=== PATIENT | female | born 1965 | race Caucasian/White ===

== ENCOUNTER 2016-10-11 10:59 | Emergency (ER) | payer OTHER ==
[2016-10-11 11:32] VITALS: BP 185/95; PULSE 93; RESP 16; TEMP 98.2; O2SAT 98
--- NOTE | 2016-10-11 11:59 | UCPHY ---
[id number] complaint. Foot injury HPI. 51-year-old female been back her toe today and heard crack or pop. It was swollen and discolored though now seems to be somewhat better. No previous injury to the foot. Denies focal weakness paresthesias. No other injuries ROS Constitutional. no fever/chills, no weakness Eyes. no problems with vision ENT. no sore throat, no nasal drainage Cardiovascular. no chest pain Respiratory. no shortness of breath, no cough Abdominal. no abdominal pain, no nausea/vomiting, no diarrhea . no problems urinating MS. Pain at the base of the right great toe Skin. no rash Lymph. no swollen glands Neuro. no headache, no dizziness, no difficulty walking or with speech Past Medical/Surgical History: Healthy Social History: , nonsmoker, no alcohol Smoking Status: Never smoked Physical Exam: General Appearance: Alert well-developed female mild distress vital signs stable Eyes: Pupils equal and round no pallor or injection. ENT, Mouth: Mucous membranes are moist. Respiratory: There are no retractions, lungs are clear to auscultation. Cardiovascular: Regular rate and rhythm. Gastrointestinal: Abdomen is soft and nontender, no masses, bowel sounds normal. Neurological: Awake and alert, sensory and motor exams grossly normal. Skin: Warm and dry, no rashes. Musculoskeletal: Neck is supple nontender. Extremities tenderness and some swelling to the base of the right great toe with some tenderness to the underside of the MTP joint Psychiatric: Patient is oriented X 3, there is no agitation. Constitutional: Initial Vital Signs Temperature (C) 36.8 C 10/11/16 11:26 Heart Rate 93 10/11/16 11:26 Respiratory Rate 16 10/11/16 11:26 Blood Pressure 185/95 H 10/11/16 11:26 O2 Sat (%) 98 10/11/16 11:26 O2 Delivery Mode Room Air Allergies/Adverse Reactions: No Known Allergies Allergy (Unverified 10/11/16 11:31) Home Medications: Medication Instructions Recorded NK [No Known Home Meds] 10/11/16 MDM/Departure - MDM Diagnostics: X-ray of the right foot evaluated by me and discussed with Dr. Tao shows possible fracture of the sesamoid bone under the great toe. ED Course/Re-evaluation: Patient remained stable. She and I discussed imaging study results, treatment plan including criteria for return importance of follow-up and further evaluation. She expresses understanding and agreement Differential Diagnosis: I considered fracture, dislocation, sprain - Depart Disposition: Home, Routine, Self-Care Clinical Impression: Foot contusion Qualifiers: Encounter type: initial encounter Laterality: right Qualifier Code: (S90.31XA) Contusion of right foot, initial encounter Condition: Good Instructions: Foot Contusion (ED) Additional Instructions: Ice and elevation next 24-48 hours. Ibuprofen as needed for discomfort. You may have fractured a sesamoid bone underneath your big toe. Treatment is symptomatic. Return for worsening symptoms. Further evaluation of your foot in 1 week for continued symptoms Referrals: NONE *PRIMARY CARE P,. [Primary Care Provider] - As per Instructions Comfort Logan MD [Medical Doctor] - 5-7 days, if not improved - PQRS PQRS Measurement: 134: Depression screening and followup, PRIME MD-PHQ2 (12 years and older) Over the last 2 weeks, how often have you been bothered by any of the following problems? 1. Feeling down, depressed, or hopeless? 2. Little interest or pleasure in doing things? Patient answered no to both 1 and 2 130: Documentation of medications. Reviewed all patient medications, doses, route and frequency. 226: Do you smoke? No.
--- NOTE | 2016-10-11 13:03 | DX ---
Right Foot, Three Views October 11, 2016 at 11:36 a.m. Clinical History: 51-year-old female who stubbed her foot today, and complains of pain in the great t oe. Comparison Study: None. Findings: There is a horizontal lucency through the medial great toe sesamoid bone. 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 There is some soft tissue swelling seen medially. The re is a minor hallux valgus configuration. There is no MTP joint malalignment, and the tarsometatarsa l alignment is also anatomic. I discussed these findings with Dr. Esequiel Luis at 12:10 p.m. on October 11, 2016. Impression: Suspect a transverse fracture through the midportion of the medial great toe sesamoid bon e given the mechanism of injury and point tenderness.
== END 2016-10-11 12:30 | disposition home or self-care (01) ==
LOC: CED 10:59
DX: S90.31XA Contusion of right foot, initial encounter (principal); X50.9XXA Other and unspecified overexertion or strenuous movements or postures, initial encounter
CPT/HCPCS: 73630-PO; 99214-PO; G0463-PO

== ENCOUNTER → 2016-11-30 | Outpatient (CLI) | payer OTHER | LOC: BRMIMAGING 13:33 | DX: Z12.31 Encounter for screening mammogram for malignant neoplasm of breast (principal) | CPT/HCPCS: G0202 ==

== ENCOUNTER → 2018-01-24 | Outpatient (CLI) | payer OTHER | LOC: BRMIMAGING 14:48 | PROVIDERS: ATTEND Nurse Practitioner Women's Health | DX: Z12.31 Encounter for screening mammogram for malignant neoplasm of breast (principal) ==

== ENCOUNTER → 2019-01-25 | Outpatient (CLI) | payer OTHER | LOC: BRMIMAGING 11:31 | PROVIDERS: ATTEND Obstetrics & Gynecology | DX: Z12.31 Encounter for screening mammogram for malignant neoplasm of breast (principal) ==